=== PATIENT | female | born 1995 | race Caucasian/White ===

== ENCOUNTER 2025-05-31 19:48 | Emergency (ER) | payer MEDICAID ==
[~2025-05-31] VITALS: Ht 170.2 cm; Wt 79.4 kg
[2025-05-31 20:29] VITALS: TEMP 98.3
[2025-05-31] MEDS ORDERED: LIDOCAINE 5% (PATCH) 1 EA PATCH TP ONE (21:04)
[2025-05-31] MEDS ORDERED: KETOROLAC TROMETHAMINE 15 MG/ML VIAL ONE (21:05)
[2025-05-31] MEDS ORDERED: dexaMETHasone SOD PHOSPHATE 1 ML ONE (21:05)
[2025-05-31] MEDS ORDERED: ACETAMINOPHEN 325 MG TABLET ONE (21:05)
[2025-05-31] MEDS: LIDOCAINE 5% (PATCH) 1 EA PATCH TP SCH (21:12)
[2025-05-31] MEDS: ACETAMINOPHEN 650 MG/20.3 ML UDC PO ONE (21:12)
[2025-05-31] MEDS: dexaMETHasone SOD PHOSPHATE 4 MG/ML VIAL IM ONE (21:12)
[2025-05-31] MEDS: KETOROLAC TROMETHAMINE 15 MG/ML VIAL IM ONE (21:12)
[2025-05-31 21:16] LABS: PLATELET COUNT (AUTO) 216 K/uL (150-450); RED BLOOD CELL COUNT(AUTO) 4.72 MIL/uL (4.0-5.2); RED CELL DISTRIBUTION WIDTH 12.4 % (11.5-15.0); WHITE BLOOD COUNT (AUTO) 6.5 K/uL (4.3-11.0)
[2025-05-31 21:24] LABS: CALCIUM, SERUM 9.4 mg/dL (8.5-10.1); CREATININE 0.5 mg/dL (0.6-1.3); SODIUM SERUM 140.0 mmol/L (136-145); UREA NITROGEN, BLOOD 16.0 mg/dL (7-18)
[2025-05-31 21:27] LABS: APPEARANCE,URINE CLEAR (CLEAR); BLOOD, URINE TRACE-INTA Ery/uL (NEGATIVE); LEUKOCYTE ESTERASE ,URINE 1+ (NEGATIVE); NITRITE, URINE NEGATIVE (NEGATIVE); UGLUCOSE NEGATIVE (NEGATIVE)
[2025-05-31 21:30] LABS: ASPARTATE AMINOTRANSFERASE 9.0 U/L (15-37); TOTAL PROTEIN, SERUM 7.4 g/dL (6.4-8.2)
[2025-05-31] MEDS ORDERED: IOHEXOL-350 100 ML VIAL IV ONE (21:34)
[2025-05-31] MEDS ORDERED: CT SWABBABLE VALVE TRANS SET 1 EA INFUS.SET MC ONE (21:35)
[2025-05-31] MEDS ORDERED: IV NS 0.9% 250 ML IV ONE (21:35)
[2025-05-31 21:37] LABS: ADD URINE CULTURE YES; SQUAMOUS EPITHELIAL CELL,UR Moderate /HPF (None Seen)
[2025-05-31] MEDS: PROCHLORPERAZINE EDISYLATE 10 MG/2 ML VIAL IVP ONE (22:00)
[2025-05-31] MEDS: IV NS 0.9% 1,000 ML BAG IV ONE (22:00)
[2025-05-31 23:32] VITALS: BP 119/70; O2SAT 99
== END 2025-06-01 00:39 | disposition home or self-care (01) ==
LOC: ER 20:01
DX: H53.8 Other visual disturbances (principal); M25.512 Pain in left shoulder; M54.2 Cervicalgia; R03.0 Elevated blood-pressure reading, without diagnosis of hypertension; R42 Dizziness and giddiness; R51.9 Headache, unspecified; R10.2 Pelvic and perineal pain
CPT/HCPCS: 99285; 70498; 96374; 96361; 96375; 70496; 85025; 87086; 81001; 36415; 80053; 84702; 96372 ×2; J1885; J0780; J1100; J1200; J7050; Q9967